=== PATIENT | female | born 1945 | race Caucasian/White ===

== ENCOUNTER 2018-06-09 05:56 | Day surgery (SDC) | payer MEDICARE ==
[2018-06-09] MEDS ORDERED: DIPRIVAN 200 MG/20 ML IV ONE (05:57)
[2018-06-09] MEDS ORDERED: Lactated Ringers 1,000 ML IV SCH (06:00)
[2018-06-09] MEDS ORDERED: Lactated Ringers 1,000 ML IV ONE (08:25)
--- NOTE | 2018-06-09 08:45 | OP ---
SURGERY DATE/TIME: 06/09/2018 0754 PREOPERATIVE DIAGNOSIS: Screening exam. POSTOPERATIVE DIAGNOSIS: Colon polyps in the sigmoid colon and hepatic flexure. PROCEDURE: Colonoscopy with polypectomy x2. SURGEON: Dr. Alba. ANESTHESIA: MAC. Anesthesia given by anesthesia department. HISTORY: The patient is a 72 year-old white female presenting for screening colonoscopy. She reports she had one over ten years ago. She reports a strong family history of colon cancer. The patient was appraised of the risks of the procedure including the risk of perforation, phlebitis, untoward reaction to medication, bleeding and missed lesions. The patient verbalized her understanding and desired to have the procedure performed. DESCRIPTION OF PROCEDURE: The patient was given the medications by the anesthesia department. She had continuous pulse oximetry, ECG monitoring, intermittent blood pressure monitoring and tidal CO2 monitoring during the examination. She was placed in the left lateral decubitus position. A digital rectal examination was performed and revealed normal anal sphincter tone and no masses. The flexible Olympus pediatric colonoscope was used to intubate the rectum. A view of the colon was developed sequentially to the cecum. Upon insertion and withdrawal there was noted pedunculated polyp measuring approximately 1.5 cm to 2 cm in size which was removed using hot polypectomy snare and retrieved for pathologic evaluation. There was also noted a small lesion which looked like it might be having adenomatous change which we used hot biopsy technique with the hot snare technique to destroy the lesion. There was noted another polyp approximately the hepatic flexure which also used hot polypectomy snare and retrieved for pathologic evaluation as well. No other mucosal lesions being encountered. The scope was removed from the patient who tolerated the procedure well and sent back to OP recovery in good condition. The prep was noted to be fair to good.
[2018-06-09 08:54] VITALS: PULSE 61; O2SAT 93
[2018-06-09 09:16] VITALS: BP 149/76
== END 2018-06-09 09:27 | disposition home or self-care (01) ==
LOC: SDC 05:56
PROVIDERS: ATTEND Family Medicine
DX: K63.5 Polyp of colon (principal); I10 Essential (primary) hypertension; Z85.850 Personal history of malignant neoplasm of thyroid; Z80.0 Family history of malignant neoplasm of digestive organs
CPT/HCPCS: 88305; 99100; J2704

== ENCOUNTER 2020-01-29 07:30 | Day surgery (SDC) | payer MEDICARE ==
[~2020-01-29 07:30] MED LIST: Lactated Ringers 1,000 ML IV ONE; Lactated Ringers 1,000 ML IV SCH
[2020-01-29] MEDS ORDERED: Lactated Ringers 1,000 ML IV ONE (08:00)
[2020-01-29] MEDS ORDERED: Decadron 4 MG INJ ONE (09:31)
[2020-01-29] MEDS ORDERED: Zofran 4 MG/2 ML VIAL ONE (09:31)
[2020-01-29] MEDS ORDERED: DIPRIVAN 200 MG/20 ML IV ONE (09:31)
[2020-01-29] MEDS ORDERED: SUBLIMAZE 100 MCG/2 ML ONE (09:31)
[2020-01-29] MEDS ORDERED: Zemuron 100 MG/10 ML ONE ×2 (09:31→10:37)
[2020-01-29] MEDS ORDERED: Versed 2 MG/2 ML Injection ONE (09:32)
[2020-01-29] MEDS ORDERED: Sensorcaine 0.25% 10 ML ONE (09:53)
[2020-01-29] MEDS ORDERED: MORPHINE SULFATE 10 MG/ML ONE (10:47)
[2020-01-29] MEDS ORDERED: BRIDION 200MG/2ML IV ONE (11:09)
[2020-01-29 12:49] VITALS: BP 141/71; PULSE 60; O2SAT 94
--- NOTE | 2020-01-30 09:02 | OP ---
SURGERY DATE/TIME: 01/29/2020 0958 PREOPERATIVE DIAGNOSES: 1) Right ovarian cyst. 2) Thickened endometrium. POSTOPERATIVE DIAGNOSES: 1) Right ovarian cyst. 2) Thickened endometrium. 3) Large fibroid uterus. PROCEDURES: 1) Dilatation and curettage. 2) Laparoscopic bilateral salpingo-oophorectomy. SURGEON: Larry Casanova D.O. INSTRUCTIONAL TECHNOLOGY COORDINATOR: kary Sepulveda tech. ANESTHESIA: General. ESTIMATED BLOOD LOSS: Minimal. COMPLICATIONS: None. INDICATIONS: The risks, benefits, indications and alternatives of the procedure were reviewed with the patient prior to the procedure. The patient understood the risk of infection, bleeding, bowel injury, bladder injury, ureteral injury, incisional hernia, pelvic infection, thromboembolic disorder associated with the surgery and desires to have this surgery as a possible need to alleviate her current medical condition. DESCRIPTION OF PROCEDURE AND FINDINGS: At this point the patient is taken to the operating room, given general sedation, placed in dorsal lithotomy position. Prepped and draped in the usual sterile fashion. A weighted speculum is then placed in the patient's vagina and the anterior lip of the cervix grasped with a single tooth tenaculum. Endocervical dilators were advanced to the endocervical canal as a means to dilate the cervix and the curette is then placed in the fundus of the uterus were curettage performed in all quadrants of the uterus retrieving a mild to moderate amount of tissue. From this point hemostasis was obtained. From this point all instruments were removed from the patient's vaginal region. Attention was then turned to the patient's abdomen where a 5 mm skin incision was made approximately 1 cm superior to the umbilicus where a 5 mm trocar and sleeve were advanced under direct visualization. Pneumoperitoneum was obtained with 4 liters of CO2 gas. From this point an additional incision was made in the left middle quadrant region where a 5 mm trocar and sleeve were advanced under direct visualization as well. Visualization of the abdomen and pelvis revealed her to have a right ovarian cyst approximately 5 x 4 cm in dimension and also large fibroid uterus with three large myomas, one on the fundal region approximately 4 x 3 cm and one anteriorly approximately 3 x 3 cm and one posteriorly approximately 3 x 3 cm. There were no other gross abnormalities located within the abdomen or pelvic region. From this point the an additional incision was made 2 cm above the symphysis pubis where a 10 mm incision was made and a 10 mm trocar and sleeve were advanced under direct visualization. From this point the LigaSure was introduced to the middle quadrant trocar site port and the right adnexa was lifted and LigaSure was placed on the infundibulopelvic ligament where it was clamped, coagulated, cut and excised in its entirety and was done so without complication. Hemostasis obtained. As well due to her strong family history of ovarian cancer, the left adnexa was removed where it was lifted up with atraumatic grasper and LigaSure was used to clamp, coagulate and cut the left infundibulopelvic region ligament and was done so without complication. Hemostasis was obtained. From this point the Endobag was introduced through the 10 mm port and the specimens were placed in the 10 mm bag port and was removed through that site and was done so without complication. After complete removal of bilateral ovaries with the tubes, a Jose-Dayton suture set was used to close the 10 mm port site and was done so without complication and 0 Vicryl suture. From this point all instruments were removed from the patient's abdominal region. The incisions were closed with 4-0 Monocryl suture. The patient was taken out of dorsal lithotomy position, was taken out of anesthesia and was subsequently taken to the recovery room in stable condition. All instruments and laps were accounted for x2.
== END 2020-01-29 13:11 | disposition home or self-care (01) ==
LOC: SDC 07:30
PROVIDERS: ATTEND Obstetrics & Gynecology
DX: D27.1 Benign neoplasm of left ovary (principal); D25.9 Leiomyoma of uterus, unspecified; N84.0 Polyp of corpus uteri; N83.8 Other noninflammatory disorders of ovary, fallopian tube and broad ligament; R93.89 Abnormal findings on diagnostic imaging of other specified body structures; I10 Essential (primary) hypertension; E78.00 Pure hypercholesterolemia, unspecified
CPT/HCPCS: 58120; 58661; 87070; 88305; 99100; J1100; J2250; J2270; J2405; J2704; J3010

== ENCOUNTER 2024-03-03 06:51 | Emergency (ER) | payer MEDICARE ==
[2024-03-03 07:26] VITALS: RESP 18; TEMP 97.8
--- NOTE | 2024-03-03 07:34 | ERPHSYRPT ---
- History of Present Illness Time Seen by Provider: 03/03/24 07:20 Source: patient Exam Limitations: no limitations Patient Subjective Stated Complaint: Fall Triage Nursing Assessment: Patient ambulated back to ED and transferred self to bed. Patient A+O X3. Patient's skin pink, warm and dry. Patient states around 0600 she wasn't fully awake and took a fall from her toilet. Patient states she landed on her left knee and left arm and left side of face. Patient complains of right shoulder pain 10/10. Patient's right cheek noted to be red and swollen. Left forearm noted to be bruised and has an abrasion, left knee bruised. Physician History: Patient is a 78-year-old white female who got up to go to the bathroom this morning early and fell. She is not sure why she fell she was not fully awake. She complains primarily of pain in the right shoulderShe is also suffered a contusion to the right cheek left knee left wrist.She denies any loss of consciousness. Occurred: this morning Reason for Fall: unknown Injuries/Pain Location: face, upper extremity (Right shoulder left wrist), lower extremity (Left knee) Loss of Consciousness: no loss of consciousness Quality: aching Severity of Pain-Max: moderate Severity of Pain-Current: moderate Modifying Factors: Improves With: movement Associated Symptoms (Fall): extremity injury Allergies/Adverse Reactions: No Known Drug Allergies Allergy (Verified 03/03/24 07:10) Home Medications: Levothyroxine Sodium [Synthroid] 175 mcg PO DAILY 04/25/18 [History] Lovastatin 40 mg PO HS 04/25/18 [History] Metoprolol Tartrate 25 mg PO DAILY 04/25/18 [History] Triamterene/Hydrochlorothiazid [Triamterene-Hctz 37.5-25 mg Tb] 37.5 mg PO DAILY 04/25/18 [History] dilTIAZem HCl [Diltiazem 24Hr ER (LA)] 360 mg PO DAILY 04/25/18 [History] Glucosam/Chond/Hyalu/Cf Borate [Move Free Joint Health Tablet] 1 each PO DAILY 01/15/20 [History] Hx Influenza Vaccination/Date Given: Yes Hx Pneumococcal Vaccination/Date Given: Yes Immunizations Up to Date: Yes Travel Risk - International Travel Have you traveled outside of the country in past 3 weeks: No - Emerging Infectious Disease Are you exhibiting symptoms associated with any current EIDs: No - Review of Systems Constitutional: No Fever, No Chills Eyes: No Symptoms Ears, Nose, & Throat: No Symptoms Respiratory: No Cough, No Dyspnea Cardiac: No Chest Pain, No Edema, No Syncope Abdominal/Gastrointestinal: No Abdominal Pain, No Nausea, No Vomiting, No Diarrhea Genitourinary Symptoms: No Dysuria Musculoskeletal: Fall, Injury, Joint Pain, No Back Pain, No Neck Pain Skin: Other (Contusions and abrasions face and extremities), No Rash Neurological: No Dizziness, No Focal Weakness, No Sensory Changes Psychological: No Symptoms Endocrine: No Symptoms All Other Systems: Reviewed and Negative - Past Medical History Pertinent Past Medical History: Yes Neurological History: Migraines ENT History: Cataracts Cardiac History: Arrhythmia, High Cholesterol, Hypertension Respiratory History: No Pertinent History Endocrine Medical History: Thyroid Cancer, Other Musculoskeletal History: Osteoarthritis GI Medical History: No Pertinent History History: No Pertinent History Psycho-Social History: No Pertinent History Female Reproductive Disorders: No Pertinent History Other Medical History: THYROID CA IN 1994, WAS REMOVED. R AGUILA 2020. - Past Surgical History Past Surgical History: Yes Neuro Surgical History: No Pertinent History Cardiac: No Pertinent History Respiratory: No Pertinent History Gastrointestinal: No Pertinent History Genitourinary: No Pertinent History Musculoskeletal: Orthopedic Surgery, Other Female Surgical History: No Pertinent History Other Surgical History: thyroidectomy 1994 due to cancer right knee surg, Metal in back from surg L3,4,5 - Social History Smoking Status: Never smoker Exposure to second hand smoke: No Drug Use: none - Nursing Vital Signs Nursing Vital Signs: Initial Vital Signs Temperature 97.8 F 03/03/24 07:11 Pulse Rate 79 03/03/24 07:11 Respiratory Rate 18 03/03/24 07:11 Blood Pressure 140/78 03/03/24 07:11 O2 Sat by Pulse Oximetry 95 03/03/24 07:11 Pain Scale Pain Intensity 10 - [place] Coma Score Best Eye Response ([place]): (4) open spontaneously Best Verbal Response ([place]): (5) oriented Best Motor Response ([place]): (6) obeys commands [place] Total: 15 - Physical Exam General Appearance: mild distress Head Injury: contusions (Contusions of the left wrist right cheek left knee and right shoulder.) Eye Exam: PERRL/EOMI ENT Exam: other (Contusion right zygomatic area) Neck Exam: supple, trachea midline, full range of motion Respiratory/Chest Exam: chest tenderness, normal breath sounds Cardiovascular Exam: normal heart sounds, regular rate/rhythm Gastrointestinal Exam: soft, normal bowel sounds, No tenderness Back Exam: normal inspection, normal range of motion Extremity Exam: contusions Neurologic Exam: alert, oriented x 3, cooperative, sensation nml, No motor deficits Skin Exam: abrasion SpO2 Interpretation: normal SpO2: 95 O2 Delivery: Room Air - Course Nursing assessment & vital signs reviewed: Yes - Radiology Exams Shoulder X-ray Interpretation: Reviewed by me Left Wrist X-ray Interpretation: Interpreted by me, Negative Facial X-ray Interpretation: Interpreted by me, Negative Left Knee X-ray Interpretation: Interpreted by me, Negative Ordered Tests: Active Orders 24 hr Category Date Time Status FACIAL BONES (MINIMUM 3 VIEWS) Stat Exams 03/03/24 07:22 Taken KNEE (3 VIEWS) Stat Exams 03/03/24 07:23 Taken SHOULDER Stat Exams 03/03/24 07:22 Completed WRIST (MIN 3 VIEWS) Stat Exams 03/03/24 07:24 Taken - Progress Progress: improved Medical Desision Making - Diagnostic Testing Radiological Interpretation: Interpreted by me, Reviewed by me - Risk of complications Minimal Risk: Minimal risk of morbidity - Departure Departure Disposition: Home Clinical Impression: Fall with injury Condition: Stable Critical Care Time: No Referrals: SAL SAL [Primary Care Provider] - Follow up/PCP as directed Instructions: Contusion (DC), Preventing falls in adults Additional Instructions: Patient was instructed to follow-up with orthopedic clinic if condition did not improve or resolve.Patient refused any pain medications or saying she will use Tylenol.
[2024-03-03 08:32] VITALS: BP 164/94; PULSE 66
--- NOTE | 2024-03-03 08:48 | XRAY ---
CLINICAL HISTORY: fall pain COMPARISON: None. TECHNIQUE: X-ray of the right shoulder, AP/external and internal rotation, grasheys and Y view FINDINGS: No fracture or dislocation seen. Soft tissues appear unremarkable. Generalized reduced bone density seen. Mild acromioclavicular and glenohumeral osteoarthritis seen as evident by reduced joint spaces. No lytic or sclerotic lesion seen. Metallic clips seen at the level of the neck status post-intervention. IMPRESSION: No acute osseous abnormality seen in the right shoulder. Osteopenia and mild to moderate acromioclavicular and glenohumeral joint osteoarthritis. (Disclaimer: "A subtle bone abnormality or fracture may not be readily apparent on x-rays, thus clinical correlation and further imaging including follow-up CT, MRI or follow up x-rays are advised as needed"). Electronically Signed by: Josefina Ballard MD. (03/03/2024 08:44:57 EDT)
[2024-03-03 09:16] VITALS: O2SAT 95
--- NOTE | 2024-03-03 20:13 | XRAY ---
Indication: Pain following fall. Comparison: None 3 view facial bones demonstrates osteopenia and mild multilevel cervical degenerative spondylosis. Patient edentulous. No other bony, articular, or soft tissue abnormalities.
--- NOTE | 2024-03-03 20:13 | XRAY ---
Indication: Pain following fall. Comparison: None 3 view left wrist demonstrates osteopenia, mild 1st metacarpal multangular scaphoid degenerative changes, and radiocarpal joint space narrowing. No other bony, articular, or soft tissue abnormalities.
--- NOTE | 2024-03-03 20:13 | XRAY ---
Indication: Pain following fall. Comparison: None 3 view left knee demonstrates osteopenia, mild/moderate tricompartmental degenerative changes greatest medial compartment, and small fabella. No other bony, articular, or soft tissue abnormalities.
== END 2024-03-03 09:27 | disposition home or self-care (01) ==
LOC: ED 06:51
DX: S60.212A Contusion of left wrist, initial encounter (principal); S00.83XA Contusion of other part of head, initial encounter; S80.02XA Contusion of left knee, initial encounter; S40.011A Contusion of right shoulder, initial encounter; W19.XXXA Unspecified fall, initial encounter; E78.5 Hyperlipidemia, unspecified; I10 Essential (primary) hypertension; Z79.899 Other long term (current) drug therapy
CPT/HCPCS: 70150; 73030; 73110; 73562; 99283; L3650

== ENCOUNTER 2024-05-21 07:07 | Emergency (ER) | payer MEDICARE ==
[2024-05-21 07:26] VITALS: TEMP 97.2
--- NOTE | 2024-05-21 08:06 | ERPHSYRPT ---
- History of Present Illness Source: patient Exam Limitations: no limitations Patient Subjective Stated Complaint: pt here for pain to right foot after a fall last night. states pain is worse bearing wt Triage Nursing Assessment: pt alert, walked in with cane, resp easy, skin w/d/p. no swelling or bruising noted, strong pedal pulse Physician History: Patient is a 78-year-old female who complains of right foot pain after falling last night at home on a hill. Pain is 5 out of 10 but rises to a 10 out of 10 when she is up and walking. she denies any other injury at this time, including head injury, neck injury, chest injury, upper and lower back injury, pelvic/hip injury, and upper extremity injury. Patient refuses any pain meds at this time. Method of Injury: fell Occurred: other ( Last night at her house) Quality: aching Severity of Pain-Max: severe Severity of Pain-Current: moderate Lower Extremities Pain: foot: right Modifying Factors: Improves With: other ( weight-bearing) Allergies/Adverse Reactions: No Known Drug Allergies Allergy (Verified 05/21/24 07:23) Home Medications: Levothyroxine Sodium [Synthroid] 175 mcg PO DAILY 04/25/18 [History] Lovastatin 40 mg PO HS 04/25/18 [History] Metoprolol Tartrate 25 mg PO DAILY 04/25/18 [History] Triamterene/Hydrochlorothiazid [Triamterene-Hctz 37.5-25 mg Tb] 37.5 mg PO DAILY 04/25/18 [History] dilTIAZem HCl [Diltiazem 24Hr ER ([place])] 360 mg PO DAILY 04/25/18 [History] Glucosam/Chond/Hyalu/Cf Borate [Move Free Joint Health Tablet] 1 each PO DAILY 01/15/20 [History] Hx Influenza Vaccination/Date Given: Yes Hx Pneumococcal Vaccination/Date Given: Yes Immunizations Up to Date: Yes Travel Risk - International Travel Have you traveled outside of the country in past 3 weeks: No - Emerging Infectious Disease Are you exhibiting symptoms associated with any current EIDs: No - Review of Systems Constitutional: No Symptoms Eyes: No Symptoms Ears, Nose, & Throat: No Symptoms Respiratory: No Symptoms Cardiac: No Symptoms Abdominal/Gastrointestinal: No Symptoms Genitourinary Symptoms: No Symptoms Skin: No Symptoms Neurological: No Symptoms Psychological: No Symptoms Endocrine: No Symptoms Hematologic/Lymphatic: No Symptoms Immunological/Allergic: No Symptoms - Past Medical History Pertinent Past Medical History: Yes Neurological History: Migraines ENT History: Cataracts Cardiac History: Arrhythmia, High Cholesterol, Hypertension Respiratory History: No Pertinent History Endocrine Medical History: Thyroid Cancer, Other Musculoskeletal History: Osteoarthritis GI Medical History: No Pertinent History History: No Pertinent History Psycho-Social History: No Pertinent History Female Reproductive Disorders: No Pertinent History Other Medical History: THYROID CA IN 1994, WAS REMOVED. R AGUILA 2020. - Past Surgical History Past Surgical History: Yes Neuro Surgical History: No Pertinent History Cardiac: No Pertinent History Respiratory: No Pertinent History Gastrointestinal: No Pertinent History Genitourinary: No Pertinent History Musculoskeletal: Orthopedic Surgery, Other Female Surgical History: No Pertinent History Other Surgical History: thyroidectomy 1994 due to cancer right knee surg, Metal in back from surg L3,4,5 - Social History Smoking Status: Never smoker Exposure to second hand smoke: No Drug Use: none - Social Determinants of Health Will the patient participate in the screening: Yes Do you worry about a steady place to live?: No Do you have any problems with any of the following?: No known problems In the past 12 months,have you had to go without utilities?: No Transportation Issues: No Has anyone in your support network made you feel unsafe?: No Have you or anyone in your house had to go without enough: No - Nursing Vital Signs Nursing Vital Signs: Initial Vital Signs Temperature 97.2 F 05/21/24 07:25 Pulse Rate 76 05/21/24 07:25 Respiratory Rate 16 05/21/24 07:25 Blood Pressure 191/73 05/21/24 07:25 O2 Sat by Pulse Oximetry 96 05/21/24 07:25 Pain Scale Pain Intensity 4 hypertensive - Physical Exam General Appearance: no apparent distress Eyes, Ears, Nose, Throat Exam: normal ENT inspection, TMs normal, pharynx normal, moist mucous membranes Neck Exam: normal inspection, non-tender, supple, full range of motion, No Brudzinski, No Kernig's, No meningismus Cardiovascular/Respiratory Exam: normal breath sounds, regular rate/rhythm, heart sounds normal Gastrointestinal/Abdominal Exam: non-tender, soft Back Exam: normal inspection ( no T or L-spine tenderness to palpation) Hips Exam: bilateral: non-tender, normal inspection, normal range of motion, no evidence of injury Legs Exam: bilateral leg: non-tender, normal inspection, normal range of motion, no evidence of injury Knees Exam: bilateral knee: non-tender, normal inspection, normal range of motion, no evidence of injury Ankle Exam: right ankle: swelling ( right ankle with mild edema and very mild tenderness palpation inferior to the lateral malleolus, good pedal pulse, distal sensation, capillary return.), left ankle: non-tender, normal inspection, normal range of motion, no evidence of injury Foot Exam: right foot: other ( Right foot with moderate tenderness palpation over the anterior lateral foot area, mild edema present, good pedal pulse, distal sensation, and capillary return), bilateral foot: non-tender, normal inspection, normal range of motion, no evidence of injury Neuro/Tendon Exam: normal sensation, normal motor functions, responds to pain, no evidence tendon injury Mental Status Exam: alert, oriented x 3, cooperative Skin Exam: normal color, warm, dry SpO2 Interpretation: normal SpO2: 96 O2 Delivery: Room Air - Course Nursing assessment & vital signs reviewed: Yes - Radiology Exams Foot X-ray Interpretation: Reviewed by me ( Right Fifth metatarsal fracture per radiologist) Ankle X-ray Interpretation: Reviewed by me ( right ankle with soft tissue swelling) Ordered Tests: Active Orders 24 hr Category Date Time Status Splint STAT Care 05/21/24 09:30 Completed ANKLE (3 VIEWS) Stat Exams 05/21/24 07:37 Completed FOOT (MINIMUM 3 VIEWS) Stat Exams 05/21/24 07:36 Completed - Progress Progress: improved Progress Note: 05/21/24 11:40 Nursing note and vital signs reviewed. No food or housing insecurity noted. Boot on right lower extremity per nursing, neurovascular intact post application. All x-ray results thoroughly reviewed and shared with patient. Patient refused pain meds throughout her entire ER visit. Patient also refused crutches and will use her walker at home. She just wants to take Tylenol for pain at home was advised to take that every 6 hours as needed. Patient has seen Zarina Lynn [facility] in the past and wants to follow-up with her. Patient advised that she is not to bear weight on her right lower extremity and to follow-up with the orthopedic clinic in the morning. Blood pressure initially elevated but normalized without treatment. 05/21/24 11:42 Counseled pt/family regarding: diagnosis, need for follow-up, rad results Medical Desision Making - Independent Historian Additional History obtained from: Spouse - Diagnostic Testing Diagnostic test were ordered, analyzed, and reviewed by me: Yes Radiological Interpretation: Reviewed by me - Risk of complications Low Risk: Low risk of morbidity from additional dx testing or treatment - Departure Departure Disposition: Home Clinical Impression: Nondisplaced fracture of fifth left metatarsal bone Condition: Stable Critical Care Time: No Referrals: SAL SAL [Primary Care Provider] - Follow up/PCP as directed ZARINA LYNN NP [NON-STAFF PHY W/O PRIVILEGES] - Follow up/PCP as directed Instructions: Foot Fracture (DC) Additional Instructions: No weight bearing, use your walker Follow-up with the orthopedic clinic 8 AM to 10 AM in the morning Continue with Tylenol as needed for pain Return to ER as needed Forms: Ortho Referral
--- NOTE | 2024-05-21 09:27 | XRAY ---
Indication: Pain following fall. Comparison: None 3 view right ankle demonstrates osteopenia and moderate soft tissue swelling. No other bony, articular, or soft tissue abnormalities.
--- NOTE | 2024-05-21 09:29 | XRAY ---
Indication: Pain following fall. Comparison: None 3 nonweightbearing views right foot demonstrates osteopenia. Proximal shaft 5th metatarsal demonstrates incomplete transverse hairline fracture with adjacent soft tissue swelling. No other bony, articular, or soft tissue abnormalities.
[2024-05-21 09:48] VITALS: BP 150/74; PULSE 95; RESP 16
[2024-05-21 11:10] VITALS: O2SAT 96
== END 2024-05-21 09:53 | disposition home or self-care (01) ==
LOC: ED 07:07
DX: S92.355A Nondisplaced fracture of fifth metatarsal bone, left foot, initial encounter for closed fracture (principal); W17.81XA Fall down embankment (hill), initial encounter; Y92.007 Garden or yard of unspecified non-institutional (private) residence as the place of occurrence of the external cause; E78.5 Hyperlipidemia, unspecified; I10 Essential (primary) hypertension; Z79.899 Other long term (current) drug therapy
CPT/HCPCS: 73610; 73630; 99283; L4386

== ENCOUNTER 2024-06-13 13:32 | Day surgery (SDC) | payer MEDICARE ==
[2024-06-13] MEDS ORDERED: Sodium Chloride 0.9(Preservative Free) 10 ML IJ ONE (13:33)
[2024-06-13] MEDS ORDERED: LIDOCAINE HCL 1% 50 MG/5 ML VL PF IJ ONE (13:33)
[2024-06-13] MEDS ORDERED: Decadron 4 MG INJ IV ONE (13:33)
[2024-06-13] MEDS ORDERED: DIPRIVAN 200 MG/20 ML IV ONE (15:05)
[2024-06-13] MEDS ORDERED: Lactated Ringers 1,000 ML IV ONE (15:13)
--- NOTE | 2024-06-13 16:36 | XRAY ---
Indication: Left L4-S1 transforaminal ABEL. Intraoperative fluoroscopy provided for 31 seconds. 4 digital spot images submitted for interpretation demonstrates posterior needle tips projecting over expected left L4 and L5 nerve roots. Small amount of contrast injected for needle tip placement. Correlate with intraoperative findings/report. Incidental spinous process fusion hardware posterior to L4.
--- NOTE | 2024-06-13 16:38 | XRAY ---
Indication: Left piriformis injection. Intraoperative fluoroscopy provided for 18 seconds. Single digital spot image submitted for interpretation demonstrates posterior needle tip projecting over expected left piriformis. Small amount of contrast injected for needle tip placement. Correlate with intraoperative findings/report.
--- NOTE | 2024-06-14 09:49 | XRAY ---
18 seconds of fluoroscopy was used in surgery for a left piriformis injection.
--- NOTE | 2024-06-14 09:50 | XRAY ---
31 seconds of fluoroscopy was used in surgery for a left L4-S1 transforaminal ABEL.
== END 2024-06-13 15:37 | disposition home or self-care (01) ==
LOC: SDC-PAIN 13:32
PROVIDERS: ATTEND Psychiatry & Neurology Pain Medicine
DX: M54.16 Radiculopathy, lumbar region (principal); M79.18 Myalgia, other site
CPT/HCPCS: 20552; 64483; 64484; 72100; 72170; 77002; 77003; 99100; J1100; J2001; J2704; Q9966

== ENCOUNTER 2024-11-26 02:24 | Emergency (ER) | payer MEDICARE ==
[2024-11-26 02:42] VITALS: TEMP 97.7
--- NOTE | 2024-11-26 02:50 | ERPHSYRPT ---
<TIGRE CORMIER - Last Filed: 11/26/24 07:32> - History of Present Illness Time Seen by Provider: 11/26/24 02:31 Historian: patient Exam Limitations: no limitations Patient Subjective Stated Complaint: c/o chest pain Triage Nursing Assessment: patient brought into ED by ambulance with c/o chest pain. patient stated that she woke up around 0036 with chest pressure. patient stated that the pain was 10/10 and wasn't going away so she called 911. S1 and S2 heard, pulses normal, skin w/n/d, hypertensive, brought in by stretcher, aspirin and nitro given prior to arrival, no edema present in lower extremeties, patient doesn't appear to be in any distress at this time. Physician History: Pt states about 2 hours ago she awoke with chest tightness up to 10/10 in severity and nausea; denies shortness of air, abdominal pain, vomiting, fever, headache. Aspirin Treatment Today: 81 mg x 4, provided by ED Allergies/Adverse Reactions: No Known Drug Allergies Allergy (Verified 11/26/24 02:42) Home Medications: Levothyroxine Sodium [Synthroid] 175 mcg PO DAILY 04/25/18 [History] Lovastatin 40 mg PO HS 04/25/18 [History] Metoprolol Tartrate 25 mg PO DAILY 04/25/18 [History] Triamterene/Hydrochlorothiazid [Triamterene-Hctz 37.5-25 mg Tb] 37.5 mg PO DAILY 04/25/18 [History] dilTIAZem HCL [Diltiazem 24Hr ER ([place])] 360 mg PO DAILY 04/25/18 [History] Glucosam/Chond/Hyalu/Cf Borate [Move Free Joint Health Tablet] 1 each PO DAILY 01/15/20 [History] Potassium Chloride [Klor-Con M20] 20 meq PO DAILY 11/26/24 [History] Hx Tetanus, Diphtheria Vaccination/Date Given: Yes Hx Influenza Vaccination/Date Given: No Hx Pneumococcal Vaccination/Date Given: Yes Travel Risk - International Travel Have you traveled outside of the country in past 3 weeks: No - Emerging Infectious Disease Are you exhibiting symptoms associated with any current EIDs: No - Review of Systems Constitutional: No Fever Respiratory: No Dyspnea Cardiac: Other (chest tightness) Abdominal/Gastrointestinal: Nausea, No Abdominal Pain, No Vomiting Neurological: Headache - Past Medical History Pertinent Past Medical History: Yes Neurological History: Migraines ENT History: Cataracts Cardiac History: Arrhythmia, High Cholesterol, Hypertension Respiratory History: No Pertinent History Endocrine Medical History: Thyroid Cancer, Other Musculoskeletal History: Osteoarthritis GI Medical History: No Pertinent History History: No Pertinent History Psycho-Social History: No Pertinent History Female Reproductive Disorders: No Pertinent History Other Medical History: THYROID CA IN 1994, WAS REMOVED. R AGUILA 2020. - Past Surgical History Past Surgical History: Yes Neuro Surgical History: No Pertinent History Cardiac: No Pertinent History Respiratory: No Pertinent History Gastrointestinal: No Pertinent History Genitourinary: No Pertinent History Musculoskeletal: Orthopedic Surgery, Other Female Surgical History: No Pertinent History Other Surgical History: thyroidectomy 1994 due to cancer right knee surg, Metal in back from surg L3,4,5 - Social History Smoking Status: Never smoker Exposure to second hand smoke: No Drug Use: none - Social Determinants of Health Will the patient participate in the screening: Yes Do you worry about a steady place to live?: No Do you have any problems with any of the following?: No known problems In the past 12 months,have you had to go without utilities?: No Transportation Issues: No Has anyone in your support network made you feel unsafe?: No Have you or anyone in your house had to go without enough: No - Physical Exam General Appearance: alert, anxiety Eye Exam: eyes nml inspection Ears, Nose, Throat Exam: TMs normal, pharynx normal Neck Exam: normal inspection Respiratory Exam: normal breath sounds, airway intact Cardiovascular Exam: murmur (1/6 systolic murmur) Gastrointestinal/Abdomen Exam: normal bowel sounds Extremity Exam: No pedal edema Neurologic Exam: alert, cooperative Skin Exam: warm, dry, No cyanosis SpO2 Interpretation: normal SpO2: 96 O2 Delivery: Room Air - Course Nursing assessment & vital signs reviewed: Yes EKG Interpreted by Me: RATE (79), Sinus Rhythm, Left Dale Deviation, Other (QTc = 453) - Radiology Exams Chest X-ray Interpretation: Teleradiologist Report (See report.) - CT Exams Chest CT Interpretation: Tele-radiologist Report (No large filling defect in the pulmonary trunk or right and left pulmonary arteries. No acute pulmonary abnormality was depicted on CT. Cholelithiasis with suggestion of wall thickening. Ultrasound correlation is recommended to excllude acute cholecystitis. See rest of report.) - Departure Clinical Impression: Chest tightness, Cholelithiasis with cholecystitis Condition: Stable Critical Care Time: No Referrals: SAL SAL [Primary Care Provider] - Follow up/PCP as directed Additional Instructions: Drink plenty of fluids. Avoid fatty greasy spicy foods. Call your primary care provider today, 11/26/2024, to make arrangements for follow-up visit and for referral to a general surgeon. <RYAN BARAJAS. - Last Filed: 11/26/24 08:54> - Nursing Vital Signs Nursing Vital Signs: Initial Vital Signs Temperature 97.7 F 11/26/24 02:25 Pulse Rate 82 11/26/24 02:25 Respiratory Rate 20 11/26/24 02:25 Blood Pressure 168/86 11/26/24 02:25 O2 Sat by Pulse Oximetry 96 11/26/24 02:25 Pain Scale Pain Intensity 6 Ordered Tests: Active Orders 24 hr Category Date Time Status EKG-ER Only STAT Care 11/26/24 02:47 Active IV Insertion STAT Care 11/26/24 02:47 Active IV Insertion-2nd Peripheral STAT Care 11/26/24 04:25 Active CHEST 2 VIEWS (PA AND LAT) Stat Exams 11/26/24 02:48 Completed CHEST WITH CONTRAST [CT] Stat Exams 11/26/24 04:29 Completed GALLBLADDER [US] Stat Exams 11/26/24 06:53 Completed AMYLASE Stat Lab 11/26/24 03:10 Completed CBC W DIFF Stat Lab 11/26/24 03:10 Completed CMP Stat Lab 11/26/24 03:10 Completed D-DIMER QUANTITATIVE Stat Lab 11/26/24 03:10 Completed LIPASE Stat Lab 11/26/24 03:10 Completed MAGNESIUM Stat Lab 11/26/24 03:10 Completed TROPONIN Q4H Lab 11/26/24 03:10 Completed TROPONIN Q4H Lab 11/26/24 08:00 Completed TROPONIN Q4H Lab 11/26/24 11:00 Ordered UA W/RFX UR CULTURE Stat Lab 11/26/24 03:34 Completed Medication Summary Discontinued Medications Generic Name Dose Route Start Last Admin Trade Name Freq PRN Reason Stop Dose Admin Aspirin 324 mg 11/26/24 07:31 11/26/24 07:43 Aspirin 81 Mg Tab.Chew PO 11/26/24 07:32 324 mg STAT ONE Administration Aspirin Confirm 11/26/24 07:42 Aspirin 81 Mg Tab.Chew Administered 11/26/24 07:43 Dose 324 mg .ROUTE .STK-MED ONE Nitroglycerin 0.4 mg 11/26/24 02:49 11/26/24 02:55 Nitroglycerin 0.4 Mg (Ed) 0.4 Mg Tab.Subl SL 11/26/24 02:50 0.4 mg STAT ONE Administration Nitroglycerin Confirm 11/26/24 02:54 Nitroglycerin 0.4 Mg (Ed) 0.4 Mg Tab.Subl Administered 11/26/24 02:55 Dose 0.4 mg SL .STK-MED ONE Lab/Rad Data: Laboratory Result Diagrams 11/26/24 03:10 11/26/24 03:10 Laboratory Results 11/26/24 11/26/24 11/26/24 Range/Units 08:00 03:34 03:10 WBC (3.98-10.04) x10^3/uL RBC (3.93-5.22) x10^6/uL Hgb (11.2-15.7) g/dL Hct (34.1-44.9) % MCV (79.4-94.8) fL MCH (25.6-32.2) pg MCHC (32.2-35.5) g/dL RDW (11.7-14.4) % Plt Count (182-369) x10^3/uL MPV (9.4-12.3) fL Gran % (34.0-71.1) % Immature Gran % (Auto) (0.001-0.429) % Nucleat RBC Rel Count (0.00-0.2) % Eos # (Auto) (0.04-0.36) x10^3/uL Immature Gran # (Auto) (0.001-0.031) x10^3u/L Absolute Lymphs (auto) (1.18-3.74) x10^3/uL Absolute Monos (auto) (0.24-0.86) x10^3/uL Absolute Nucleated RBC (0.00-0.012) x10^3u/L Lymphocytes % (19.3-51.7) % Monocytes % (4.7-12.5) % Eosinophils % (0.7-5.8) % Basophils % (0.1-1.2) % Absolute Granulocytes (1.56-6.13) x10^3/uL Basophils # (0.01-0.08) x10^3/uL D-Dimer (0.0-0.50) mg/L Sodium (135-145) mmol/L Potassium (3.5-5.1) mmol/L Chloride (98-107) mmol/L Carbon Dioxide (22-30) mmol/L Anion Gap (5-15) MEQ/L BUN (7-17) mg/dL Creatinine (0.52-1.04) mg/dL Estimated GFR ML/MIN Glucose (74-106) mg/dL Calcium (8.4-10.2) mg/dL Magnesium (1.6-2.3) mg/dL Total Bilirubin (0.2-1.3) mg/dL AST (14-36) U/L ALT (0-35) U/L Alkaline Phosphatase (38-126) U/L Troponin I < 0.012 (0.000-0.033) ng/mL Serum Total Protein (6.3-8.2) g/dL Albumin (3.5-5.0) g/dL Amylase (30-110) U/L Lipase (23-300) U/L Urine Color Yellow (Yellow) Urine Appearance Clear (Clear) Urine pH 6.5 (4.6-8.0) Ur Specific [place] 1.010 (1.005-1.030) Urine Protein Negative (Negative) Urine Glucose (UA) Negative (Negative) mg/dL Urine Ketones Negative (Negative) Urine Blood Negative (Negative) Urine Nitrite Negative (Negative) Urine Bilirubin Negative (Negative) Urine Urobilinogen 1.0 A (0.2) mg/dL Ur Leukocyte Esterase Negative (Negative) U Hyaline Cast (Auto) NONE SEEN (0-2) /LPF Urine Microscopic RBC 0-2 (0-5) /HPF Urine Microscopic WBC 0-2 (0-5) /HPF Ur Epithelial Cells None Seen (None Seen) /HPF Urine Bacteria None Seen (None Seen) /HPF Urine Culture Reflexed NO (NO) Influenza Type A Ag NEGATIVE (NEGATIVE) Influenza Type B Ag NEGATIVE (NEGATIVE) RSV (PCR) NEGATIVE (NEGATIVE) SARS-CoV-2 (PCR) NEGATIVE (NEGATIVE) Group A Strep Antibody (NEGATIVE) 11/26/24 11/26/24 11/26/24 Range/Units 03:10 03:10 03:10 WBC (3.98-10.04) x10^3/uL RBC (3.93-5.22) x10^6/uL Hgb (11.2-15.7) g/dL Hct (34.1-44.9) % MCV (79.4-94.8) fL MCH (25.6-32.2) pg MCHC (32.2-35.5) g/dL RDW (11.7-14.4) % Plt Count (182-369) x10^3/uL MPV (9.4-12.3) fL Gran % (34.0-71.1) % Immature Gran % (Auto) (0.001-0.429) % Nucleat RBC Rel Count (0.00-0.2) % Eos # (Auto) (0.04-0.36) x10^3/uL Immature Gran # (Auto) (0.001-0.031) x10^3u/L Absolute Lymphs (auto) (1.18-3.74) x10^3/uL Absolute Monos (auto) (0.24-0.86) x10^3/uL Absolute Nucleated RBC (0.00-0.012) x10^3u/L Lymphocytes % (19.3-51.7) % Monocytes % (4.7-12.5) % Eosinophils % (0.7-5.8) % Basophils % (0.1-1.2) % Absolute Granulocytes (1.56-6.13) x10^3/uL Basophils # (0.01-0.08) x10^3/uL D-Dimer 0.68 H* (0.0-0.50) mg/L Sodium (135-145) mmol/L Potassium (3.5-5.1) mmol/L Chloride (98-107) mmol/L Carbon Dioxide (22-30) mmol/L Anion Gap (5-15) MEQ/L BUN (7-17) mg/dL Creatinine (0.52-1.04) mg/dL Estimated GFR ML/MIN Glucose (74-106) mg/dL Calcium (8.4-10.2) mg/dL Magnesium (1.6-2.3) mg/dL Total Bilirubin (0.2-1.3) mg/dL AST (14-36) U/L ALT (0-35) U/L Alkaline Phosphatase (38-126) U/L Troponin I < 0.012 (0.000-0.033) ng/mL Serum Total Protein (6.3-8.2) g/dL Albumin (3.5-5.0) g/dL Amylase (30-110) U/L Lipase (23-300) U/L Urine Color (Yellow) Urine Appearance (Clear) Urine pH (4.6-8.0) Ur Specific [place] (1.005-1.030) Urine Protein (Negative) Urine Glucose (UA) (Negative) mg/dL Urine Ketones (Negative) Urine Blood (Negative) Urine Nitrite (Negative) Urine Bilirubin (Negative) Urine Urobilinogen (0.2) mg/dL Ur Leukocyte Esterase (Negative) U Hyaline Cast (Auto) (0-2) /LPF Urine Microscopic RBC (0-5) /HPF Urine Microscopic WBC (0-5) /HPF Ur Epithelial Cells (None Seen) /HPF Urine Bacteria (None Seen) /HPF Urine Culture Reflexed (NO) Influenza Type A Ag (NEGATIVE) Influenza Type B Ag (NEGATIVE) RSV (PCR) (NEGATIVE) SARS-CoV-2 (PCR) (NEGATIVE) Group A Strep Antibody NOT DETECTED (NEGATIVE) 11/26/24 11/26/24 Range/Units 03:10 03:10 WBC 5.1 (3.98-10.04) x10^3/uL RBC 3.81 L (3.93-5.22) x10^6/uL Hgb 12.0 (11.2-15.7) g/dL Hct 36.7 (34.1-44.9) % MCV 96.3 H (79.4-94.8) fL MCH 31.5 (25.6-32.2) pg MCHC 32.7 (32.2-35.5) g/dL RDW 12.2 (11.7-14.4) % Plt Count 197 (182-369) x10^3/uL MPV 10.3 (9.4-12.3) fL Gran % 53.5 (34.0-71.1) % Immature Gran % (Auto) 0.2 (0.001-0.429) % Nucleat RBC Rel Count 0.0 (0.00-0.2) % Eos # (Auto) 0.16 (0.04-0.36) x10^3/uL Immature Gran # (Auto) 0.01 (0.001-0.031) x10^3u/L Absolute Lymphs (auto) 1.84 (1.18-3.74) x10^3/uL Absolute Monos (auto) 0.35 (0.24-0.86) x10^3/uL Absolute Nucleated RBC 0.00 (0.00-0.012) x10^3u/L Lymphocytes % 36.0 (19.3-51.7) % Monocytes % 6.8 (4.7-12.5) % Eosinophils % 3.1 (0.7-5.8) % Basophils % 0.4 (0.1-1.2) % Absolute Granulocytes 2.73 (1.56-6.13) x10^3/uL Basophils # 0.02 (0.01-0.08) x10^3/uL D-Dimer (0.0-0.50) mg/L Sodium 141 (135-145) mmol/L Potassium 3.6 (3.5-5.1) mmol/L Chloride 110 H (98-107) mmol/L Carbon Dioxide 24 (22-30) mmol/L Anion Gap 10.0 (5-15) MEQ/L BUN 14 (7-17) mg/dL Creatinine 0.73 (0.52-1.04) mg/dL Estimated GFR 83.6 ML/MIN Glucose 126 H (74-106) mg/dL Calcium 10.8 H (8.4-10.2) mg/dL Magnesium 2.1 (1.6-2.3) mg/dL Total Bilirubin 0.90 (0.2-1.3) mg/dL AST 25 (14-36) U/L ALT 20 (0-35) U/L Alkaline Phosphatase 83 (38-126) U/L Troponin I (0.000-0.033) ng/mL Serum Total Protein 7.2 (6.3-8.2) g/dL Albumin 4.2 (3.5-5.0) g/dL Amylase 62 (30-110) U/L Lipase 300 (23-300) U/L Urine Color (Yellow) Urine Appearance (Clear) Urine pH (4.6-8.0) Ur Specific [place] (1.005-1.030) Urine Protein (Negative) Urine Glucose (UA) (Negative) mg/dL Urine Ketones (Negative) Urine Blood (Negative) Urine Nitrite (Negative) Urine Bilirubin (Negative) Urine Urobilinogen (0.2) mg/dL Ur Leukocyte Esterase (Negative) U Hyaline Cast (Auto) (0-2) /LPF Urine Microscopic RBC (0-5) /HPF Urine Microscopic WBC (0-5) /HPF Ur Epithelial Cells (None Seen) /HPF Urine Bacteria (None Seen) /HPF Urine Culture Reflexed (NO) Influenza Type A Ag (NEGATIVE) Influenza Type B Ag (NEGATIVE) RSV (PCR) (NEGATIVE) SARS-CoV-2 (PCR) (NEGATIVE) Group A Strep Antibody (NEGATIVE) - Progress Progress: improved, re-examined Air Movement: good Progress Note: 11/26/24 08:52 Patient care transferred to ri at 7 AM. I reviewed the patient's laboratory data results. Patient is afebrile, her white count is normal, there is no left shift, her liver function test and pancreas enzymes are normal. The CT scan of the chest with contrast was interpreted by the radiologist. There is no evidence of pulmonary embolus or pneumonia. Gallbladder ultrasound was interpreted by the radiologist and I reviewed the impression. The impression states cholelithiasis with sonographic features favoring acute cholecystitis. Counseled pt/family regarding: lab results, diagnosis, need for follow-up, rad results Medical Desision Making - Diagnostic Testing Diagnostic test were ordered, analyzed, and reviewed by me: Yes Radiological Interpretation: Reviewed by me, Teleradiologist Report - Risk of complications Low Risk: Low risk of morbidity from additional dx testing or treatment
[2024-11-26] MEDS ORDERED: Nitrostat 0.4 MG (ED) SL ONE (02:54)
[2024-11-26] MEDS: Nitrostat 0.4 MG (ED) SL ONE (02:55)
[2024-11-26 03:27] LABS: Absolute Neutrophil Ct (ANC) 2.73 x10^3/uL (1.56-6.13); BASOPHIL % 0.4 % (0.1-1.2); Basophil (Absolute #) 0.02 x10^3/uL (0.01-0.08); Eosinophil % 3.1 % (0.7-5.8); Eosinophil (Absolute #) 0.16 x10^3/uL (0.04-0.36); Hematocrit 36.7 % (34.1-44.9); IMMATURE GRAN # 0.01 x10^3u/L (0.001-0.031); IMMATURE GRAN % 0.2 % (0.001-0.429); Lymphocyte (Absolute #) 1.84 x10^3/uL (1.18-3.74); Mean Cell Volume 96.3 fL (79.4-94.8); Mean Corpuscular Hemoglobin 31.5 pg (25.6-32.2); Mean Corpuscular Hgb Concent. 32.7 g/dL (32.2-35.5); Mean Platelet Volume 10.3 fL (9.4-12.3); Monocyte (Absolute #) 0.35 x10^3/uL (0.24-0.86); Monocytes % 6.8 % (4.7-12.5); Neutrophil % 53.5 % (34.0-71.1); Platelet Count 197 x10^3/uL (182-369); Red Blood Count 3.81 x10^6/uL (3.93-5.22); Red Cell Distribution Width 12.2 % (11.7-14.4); White Blood Count 5.1 x10^3/uL (3.98-10.04)
[2024-11-26 03:44] LABS: ALBUMIN 4.2 g/dL (3.5-5.0); BILIRUBIN,TOTAL 0.9 mg/dL (0.2-1.3); Calcium 10.8 mg/dL (8.4-10.2); Creatinine 1 0.73 mg/dL (0.52-1.04); EST GLOMERULAR FILTRATION RATE 83.6 ML/MIN; MAGNESIUM 2.1 mg/dL (1.6-2.3); Potassium 3.6 mmol/L (3.5-5.1); Total Protein 7.2 g/dL (6.3-8.2)
[2024-11-26 03:46] LABS: Appearance Clear (Clear); Bacteria None Seen /HPF (None Seen); Bilirubin Negative (Negative); Blood Negative (Negative); Epithelial Cells None Seen /HPF (None Seen); Glucose, Urine Negative (Negative); Hyaline Casts NONE SEEN /LPF (0-2); Ketones Negative (Negative); Leukocyte Esterase Negative (Negative); Nitrite Negative (Negative); Ph 6.5 (4.6-8.0); Protein,Urine Dip Negative (Negative); RBC 0-2 /HPF (0-5); WBC 0-2 /HPF (0-5)
[2024-11-26 04:06] LABS: INFLUENZA A NEGATIVE (NEGATIVE); INFLUENZA B NEGATIVE (NEGATIVE); RESPIRATORY SYNCTIAL VIRUS NEGATIVE (NEGATIVE); SARS-CoV-2 Xpert Express NEGATIVE (NEGATIVE)
--- NOTE | 2024-11-26 04:48 | XRAY ---
CLINICAL HISTORY: chest tightness COMPARISON: 08/19/2011 CR. TECHNIQUE: X-ray images of the chest were obtained in posteroanterior (PA) and lateral projections. FINDINGS: Pulmonary Parenchyma: Prominent hilar shadows and bronchovascular markings at both lung salomon denote congestive changes. No evidence of consolidation, collapse, or focal opacities. No pulmonary nodules were identified. No evidence of pleural effusion or pleural thickening. Heart and Mediastinum: Prominent cardiac shadow denoting cardiomegaly. Prominent aortic knuckle. No mediastinal widening or masses. No mediastinal lymphadenopathy. Bony Thorax: Spondylodegenerative changes. Bony thorax appears intact without fractures or deformities. Soft Tissues: Radioopaque clips are seen at the region of the upper trachea and lower neck in PA view likely post-operative sequel. Dilated lower part of esophagus with air/fluid level. IMPRESSION: 1. Prominent hilar shadows and bronchovascular markings at both lung salomon denote congestive changes. Progressive. 2. Prominent cardiac shadow denoting cardiomegaly. Stable. 3. Dilated lower part of esophagus with air/fluid level for further workup. Newly seen. Electronically Signed by: Josefina Ballard MD. (11/26/2024 04:44:08 EST)
--- NOTE | 2024-11-26 06:41 | XRAY ---
CLINICAL HISTORY: elevated d-dimer COMPARISON: with the prior study dated 11/26/2024. TECHNIQUE: Contiguous 3.[address] angiographic images of the chest were acquired with the administration of intravenous contrast. Coronal and sagittal reconstructions were obtained. One of these 3D techniques was utilized: Maximum Intensity Pixel (MIP), 3D Reconstructed Images, Volume Rendered Images, Surface Shaded Rendering. One of the following dose reduction techniques were utilized for this exam: Automated exposure control, adjustment of the mA and/or kV according to patient size, and use of iterative reconstruction. CTDI: 68.3 mGy, DLP: 1284.09mGy-cm FINDINGS: Aorta: Diffuse aortic atherosclerotic changes were noted. The thoracic aorta is normal in caliber. No evidence of an aneurysm, or dissection. The aortic arch and descending thoracic aorta are unremarkable. Pulmonary Arteries: No large filling defect in the pulmonary trunk, or right and left pulmonary arteries. The possibility of segmental and subsegmental embolism cannot be entirely excluded due to suboptimal opacification. Superior Vena Cava (SVC) and Inferior Vena Cava (IVC): Normal opacification and caliber. No evidence of thrombus or obstruction. Coronary Arteries: Coronary arteries are well-opacified. No significant stenosis or atherosclerotic changes. Mediastinum: Subcentimeter right hilar lymph nodes. Small hiatal hernia. Heart: Mildly enlarged cardiac size noted. Normal size and morphology of the heart. No pericardial effusion. Lungs: Lungs are clear with no evidence of consolidation, nodules, or masses. Mild posterior gravitational changes were noted. No pleural effusion or thickening. Bones: No fractures or lytic/sclerotic lesions of the visualized bony structures. Normal alignment and bone density. Moderate spondylosis of the thoracic spine was noted. Soft Tissues: Normal appearance of the visualized soft tissues. No abnormal masses or fluid collections. Upper abdomen: Cholelithiasis with suggestion of wall thickening. Ultrasound correlation is recommended to exclude acute cholecystitis. IMPRESSION: 1. No large filling defect in the pulmonary trunk, or right and left pulmonary arteries. 2. The possibility of segmental and subsegmental embolism cannot be entirely excluded due to suboptimal opacification. 3. Cardiomegaly is seen, as noted on CT. 4. Moderate spondylosis of the thoracic spine was noted. 5. No acute pulmonary abnormality was depicted on CT. 6. Small hiatal hernia. 7. Cholelithiasis with suggestion of wall thickening. Ultrasound correlation is recommended to exclude acute cholecystitis. Electronically Signed by: Josefina Ballard MD. (11/26/2024 06:36:50 EST)
[2024-11-26] MEDS ORDERED: BABY ASPIRIN 81 MG CHEW ONE (07:42)
[2024-11-26] MEDS: BABY ASPIRIN 81 MG CHEW PO ONE (07:43)
--- NOTE | 2024-11-26 08:37 | XRAY ---
Indication: Gallbladder wall thickening on CT chest. Two-dimensional gallbladder sonogram performed. Comparison: None Visualized gallbladder normally distended with multiple tiny gallstones in the dependent portion. Abnormal gallbladder wall thickening up to 6.3 mm with tiny pericholecystic fluid concerning for acute cholecystitis. Common bile duct measures 4.2 mm. No intrahepatic biliary distention. Remaining visualized liver, pancreas, and right kidney are sonographically normal. Right kidney measures 12.1 x 5.8 x 4.8 cm. Impression: Cholelithiasis with sonographic features favoring acute cholecystitis.
[2024-11-26 09:00] VITALS: PULSE 65; RESP 18; O2SAT 96
[2024-11-26 09:10] VITALS: BP 169/86
== END 2024-11-26 09:09 | disposition home or self-care (01) ==
LOC: ED 02:24
DX: K80.10 Calculus of gallbladder with chronic cholecystitis without obstruction (principal); R07.9 Chest pain, unspecified; R11.0 Nausea; E78.5 Hyperlipidemia, unspecified; I10 Essential (primary) hypertension; Z79.899 Other long term (current) drug therapy
CPT/HCPCS: 0241U; 36415; 71046; 71260; 76705; 80053; 81001; 82150; 83690; 83735; 84484; 85025; 85379; 87651; 93005; 99285; A9270-GY

== ENCOUNTER 2025-10-04 16:57 | Emergency (ER) | payer MEDICARE ==
[2025-10-04 17:12] VITALS: TEMP 97.6
[2025-10-04 18:19] VITALS: BP 138/71; PULSE 73; RESP 18; O2SAT 96
--- NOTE | 2025-10-04 19:21 | ERPHSYRPT ---
- History of Present Illness Time Seen by Provider: 10/04/25 19:20 Source: patient Patient Subjective Stated Complaint: PT STATES SHE FELL AND HURT HER RIGHT HIP Triage Nursing Assessment: PT ARRIVES TO THE ED VIA PRIVATE VEHICLE. PT IS WHEELED INTO THE ED AND IS ABLE TO TRANSFER HERSELF INTO THE ER COT. PT IS ALERT AND ORIENTED X4, NO RESPIRATORY DISTRESS NOTED, PULSES EQUAL BILATERALLY. PT STATES SHE WAS SHOPPING TODAY WHEN SHE TRIPPED ON A CURB AND LANDED ON HER RIGHT HIP. PT DID HAVE A HIP REPLACEMENT IN 2020. PT DENIES HITTING HER HEAD OR LOSS OF CONCIOUSNESS. PT DOES HAVE SWELLING TO THE RIGHT HIP AND IS VERY TENDER TO PALPATION. THERE IS NO BRUSING PRESENT AND NO OPEN WOUNDS. PT DOES HAVE A STRONG REGULAR PULSE DISTAL TO THE INJURY ON THE AFFECTED EXTREMITY. Physician History: Take Tylenol ibuprofen for pain. Follow-up with Ortho clinic on Tuesday patient reports she caught her heel on a curb and fell onto her right buttocks today. She has been able to walk on the hip but noted some bruising and wanted to get it checked out.denies any other injury. denies limited rom. ambulatory Timing/Duration: today Allergies/Adverse Reactions: No Known Drug Allergies Allergy (Verified 10/04/25 17:16) Home Medications: Levothyroxine Sodium [Synthroid] 175 mcg PO DAILY 04/25/18 [History] Lovastatin 40 mg PO HS 04/25/18 [History] Potassium Chloride [Klor-Con M20] 20 meq PO DAILY 11/26/24 [History] Aspirin [Kishan Chewable] 81 mg PO DAILY 10/04/25 [History] Cholecalciferol (Vitamin D3) [Vitamin D3] 125 mcg PO DAILY 10/04/25 [History] Losartan Potassium 50 mg PO BID 10/04/25 [History] Meclizine HCl 25 mg PO QID 10/04/25 [History] Nitroglycerin [Nitrostat] 0.4 mg SL Q5MIN PRN MR X 3 PRN 10/04/25 [History] Hx Tetanus, Diphtheria Vaccination/Date Given: Yes Hx Influenza Vaccination/Date Given: Yes Hx Pneumococcal Vaccination/Date Given: No Immunizations Up to Date: Yes Travel Risk - International Travel Have you traveled outside of the country in past 3 weeks: No - Emerging Infectious Disease Are you exhibiting symptoms associated with any current EIDs: No - Review of Systems Constitutional: No Fever, No Chills Eyes: No Symptoms Ears, Nose, & Throat: No Symptoms Respiratory: No Cough, No Dyspnea Cardiac: No Chest Pain, No Edema, No Syncope Abdominal/Gastrointestinal: No Abdominal Pain, No Nausea, No Vomiting, No Diarrhea Genitourinary Symptoms: No Dysuria Musculoskeletal: Fall (right hip pain only), Injury, No Back Pain, No Neck Pain Skin: No Rash Neurological: No Dizziness, No Focal Weakness, No Sensory Changes Psychological: No Symptoms Endocrine: No Symptoms All Other Systems: Reviewed and Negative - Past Medical History Pertinent Past Medical History: Yes Neurological History: Migraines ENT History: Cataracts Cardiac History: Arrhythmia, High Cholesterol, Hypertension Respiratory History: No Pertinent History Endocrine Medical History: Thyroid Cancer, Other Musculoskeletal History: Osteoarthritis GI Medical History: No Pertinent History History: No Pertinent History Psycho-Social History: No Pertinent History Female Reproductive Disorders: No Pertinent History Other Medical History: THYROID CA IN 1994, WAS REMOVED. R AGUILA 2020. - Past Surgical History Past Surgical History: Yes Neuro Surgical History: No Pertinent History Cardiac: No Pertinent History Respiratory: No Pertinent History Gastrointestinal: No Pertinent History Genitourinary: No Pertinent History Musculoskeletal: Joint Replacement, Orthopedic Surgery, Other Female Surgical History: No Pertinent History Other Surgical History: thyroidectomy 1994 due to cancer right knee surg, Metal in back from surg L3,4,5, RIGHT HIP REPLACEMENT 2020 - Social History Smoking Status: Never smoker Exposure to second hand smoke: No Drug Use: none - Social Determinants of Health Will the patient participate in the screening: Yes Do you worry about a steady place to live?: No Do you have any problems with any of the following?: No known problems In the past 12 months,have you had to go without utilities?: No Transportation Issues: No Has anyone in your support network made you feel unsafe?: No Have you or anyone in your house had to go w/o enough food: No - Nursing Vital Signs Nursing Vital Signs: Initial Vital Signs Temperature 97.6 F 10/04/25 17:10 Pulse Rate 71 10/04/25 17:10 Respiratory Rate 14 10/04/25 17:10 Blood Pressure 190/84 10/04/25 17:10 O2 Sat by Pulse Oximetry 98 10/04/25 17:10 Pain Scale Pain Intensity 8 - Physical Exam General Appearance: no apparent distress Eye Exam: PERRL/EOMI Ears, Nose, Throat Exam: normal ENT inspection Neck Exam: normal inspection, non-tender Respiratory Exam: normal breath sounds Cardiovascular Exam: regular rate/rhythm Gastrointestinal/Abdomen Exam: soft, No tenderness Back Exam: normal inspection Extremity Exam: other (bruising right buttock, full rom, no shortening,. mild laterla joint tenderness, ambjulatory) SpO2: 96 Ordered Tests: Active Orders 24 hr Category Date Time Status HIP UNI (2V) INCL PEL IF DONE Stat Exams 10/04/25 18:11 Taken Medical Desision Making - Diagnostic Testing Radiological Interpretation: Interpreted by me (xray negative fx) - Departure Departure Disposition: Home Clinical Impression: Contusion of hip Condition: Good Critical Care Time: No Referrals: SAL SAL [Primary Care Provider, [facility]] - Follow up/PCP as directed Instructions: Contusion (DC) Additional Instructions: you have brusing of your hip. no fracture is seen on xray. ice and tyelnol for pain. return for worsening sx or concerns. see your pcp if not better this week
--- NOTE | 2025-10-05 07:35 | XRAY ---
Indication: Fall. Comparison: None 2 view right hip demonstrates osteopenia and intact total knee arthroplasty. No acute bony, articular, or soft tissue abnormalities.
== END 2025-10-04 19:59 | disposition home or self-care (01) ==
LOC: ED 16:57
DX: S70.01XA Contusion of right hip, initial encounter (principal); W10.1XXA Fall (on)(from) sidewalk curb, initial encounter; I10 Essential (primary) hypertension; Z79.899 Other long term (current) drug therapy

== ENCOUNTER 2025-11-06 10:35 | Emergency (ER) | payer MEDICARE ==
--- NOTE | 2025-11-06 10:46 | ERPHSYRPT ---
- History of Present Illness Time Seen by Provider: 11/06/25 10:46 Source: patient, family Exam Limitations: no limitations Physician History: This is an 80-year-old white female patient arrives by private vehicle as a patient Dr. Alba. Patient was taking her trash out this morning when she slipped on mud while taking out the trash falling onto her right side of her face and head. She has above the right eye brow skin laceration and abrasion to her right cheek. Patient states she did not lose consciousness and she is not dizzy. She was evaluated by EMT but arrived by private vehicle. Patient walked on her own from the waiting room to her emergency department room. Patient has a history of hypothyroidism, hyperlipidemia, hypertension, and has arrhythmias. Occurred: just prior to arrival Severity: mild (To moderate) Head Injury Location: temporal (And right side of her face) Method of Injury: other (Patient slipped and fell from a standing position) Loss of Consciousness: no loss of consciousness Associated Symptoms: denies symptoms Allergies/Adverse Reactions: No Known Drug Allergies Allergy (Verified 11/06/25 11:06) Home Medications: Levothyroxine Sodium [Synthroid] 175 mcg PO DAILY 04/25/18 [History] Lovastatin 40 mg PO HS 04/25/18 [History] Potassium Chloride [Klor-Con M20] 20 meq PO DAILY 11/26/24 [History] Aspirin [Kishan Chewable] 81 mg PO DAILY 10/04/25 [History] Cholecalciferol (Vitamin D3) [Vitamin D3] 125 mcg PO DAILY 10/04/25 [History] Losartan Potassium 50 mg PO BID 10/04/25 [History] Meclizine HCl 25 mg PO QID 10/04/25 [History] Nitroglycerin [Nitrostat] 0.4 mg SL Q5MIN PRN MR X 3 PRN 10/04/25 [History] Hx Tetanus, Diphtheria Vaccination/Date Given: Yes Hx Influenza Vaccination/Date Given: Yes Hx Pneumococcal Vaccination/Date Given: No Travel Risk - International Travel Have you traveled outside of the country in past 3 weeks: No - Emerging Infectious Disease Are you exhibiting symptoms associated with any current EIDs: No - Review of Systems Constitutional: No Symptoms Eyes: No Symptoms Ears, Nose, & Throat: No Symptoms Respiratory: No Symptoms Cardiac: No Symptoms Abdominal/Gastrointestinal: No Symptoms Genitourinary Symptoms: No Symptoms Musculoskeletal: No Symptoms Skin: Other (Skin abrasion and swelling right cheek. Skin laceration above the right eyebrow) Neurological: No Symptoms Psychological: No Symptoms Endocrine: No Symptoms Hematologic/Lymphatic: No Symptoms Immunological/Allergic: No Symptoms All Other Systems: Reviewed and Negative - Past Medical History Pertinent Past Medical History: Yes Neurological History: Migraines ENT History: Cataracts Cardiac History: Arrhythmia, High Cholesterol, Hypertension Respiratory History: No Pertinent History Endocrine Medical History: Thyroid Cancer, Other Musculoskeletal History: Osteoarthritis GI Medical History: No Pertinent History History: No Pertinent History Psycho-Social History: No Pertinent History Female Reproductive Disorders: No Pertinent History Other Medical History: THYROID CA IN 1994, WAS REMOVED. R AGUILA 2020. - Past Surgical History Past Surgical History: Yes Neuro Surgical History: No Pertinent History Cardiac: No Pertinent History Respiratory: No Pertinent History Gastrointestinal: No Pertinent History Genitourinary: No Pertinent History Musculoskeletal: Joint Replacement, Orthopedic Surgery, Other Female Surgical History: No Pertinent History Other Surgical History: thyroidectomy 1994 due to cancer right knee surg, Metal in back from surg L3,4,5, RIGHT HIP REPLACEMENT 2020 - Social History Smoking Status: Never smoker Exposure to second hand smoke: No Drug Use: none - Social Determinants of Health Will the patient participate in the screening: Yes Do you worry about a steady place to live?: No In the past 12 months,have you had to go without utilities?: No Transportation Issues: No Has anyone in your support network made you feel unsafe?: No Have you or anyone in your house had to go w/o enough food: No - Nursing Vital Signs Nursing Vital Signs: Initial Vital Signs Temperature 98.3 F 11/06/25 10:59 Pulse Rate 87 11/06/25 10:59 Respiratory Rate 15 11/06/25 10:59 Blood Pressure 211/108 11/06/25 10:59 O2 Sat by Pulse Oximetry 96 11/06/25 10:59 Pain Scale Pain Intensity 10 - [place] Coma Score Best Eye Response (Alejandro): (4) open spontaneously Best Verbal Response (Alejandro): (5) oriented Best Motor Response (Alejandro): (6) obeys commands [place] Total: 15 - Physical Exam General Appearance: no apparent distress, alert, anxiety Head Injury: contusions (With abrasion right cheek), lacerations (3-1/2 cm skin laceration above the right eye) Eye Exam: bilateral eye: normal inspection, PERRL, EOMI ENT Exam: airway nml, nml ext.inspection Neck Exam: supple, trachea midline, full range of motion, normal alignment, normal inspection, No pain on movement of neck, No tenderness, No mid-line tenderness Cardiovascular/Respiratory Exam: chest non-tender, no respiratory distress Gastrointestinal/Abdominal Exam: non tender Pelvic Exam: not done Rectal Exam: not done Back Exam: normal inspection, normal range of motion, No CVA tenderness, No vertebral tenderness Extremity Exam: non-tender, normal range of motion, normal inspection, no calf tenderness, no pedal edema, pelvis stable Mental Status Exam: alert, oriented x 3, 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 No foreign body. No active bleeding) Lymphatic Exam: No adenopathy SpO2 Interpretation: normal O2 Delivery: Room Air Procedures - Laceration/Wound Repair Right Frontal Time of Procedure: 12:25 Wound Location: Right, face (Right eyebrow) Wound Length (cm): 3.5 Wound's Depth, Shape: superficial, linear Wound Explored: clean (Wound explored to the base. Wound explored in a bloodless field and no foreign body noted) Irrigated: Yes Hibiclens Prep: Yes Anesthesia: 1% Lidocaine Volume Anesthetic (ccs): 4 Suture Size/Type: 4-0, nylon Number of Sutures: 4 Layer Closure?: No - Course Nursing assessment & vital signs reviewed: Yes Ordered Tests: Active Orders 24 hr Category Date Time Status FACIAL BONES WO CONTRAST [CT] Stat Exams 11/06/25 11:37 Completed HEAD WITHOUT CONTRAST [CT] Stat Exams 11/06/25 11:09 Completed Medication Summary Discontinued Medications Generic Name Dose Route Start Last Admin Trade Name Freq PRN Reason Stop Dose Admin Bacitracin Zinc 0.9 each 11/06/25 12:46 Bacitracin Packet 1 Each Pckt TP 11/06/25 12:47 STAT ONE Lidocaine HCl 10 ml 11/06/25 11:30 11/06/25 11:36 Lidocaine Hcl 1% 20 Ml Mdv 20 Ml Ml IJ 11/06/25 11:31 10 ml STAT STA Administration Lidocaine HCl Confirm 11/06/25 11:34 Lidocaine Hcl 1% 20 Ml Mdv 20 Ml Ml Administered 11/06/25 11:35 Dose 10 ml .ROUTE .STK-MED ONE Lidocaine/Prilocaine Confirm 11/06/25 11:18 Lidocaine/Prilocaine 5 Gm 5 Gm Tube Administered 11/06/25 11:19 Dose 5 gm TP .STK-MED ONE Lidocaine/Prilocaine 2.5 gm 11/06/25 11:30 11/06/25 11:32 Lidocaine/Prilocaine 5 Gm 5 Gm Tube TP 11/06/25 11:31 2.5 gm STAT STA Administration - Progress Progress: improved, pain not gone completely, re-examined Progress Note: 11/06/25 11:43 My medical decision making and the assignment of moderate complexity of this patient's medical issue today is based on review of the patient's past medical history, review of the patient's medication list, review the patient drug allergy list, history present illness and physical findings on examination. The workup in this patient includes placement of let/Emla cream to the skin laceration site, CT scan of the head and facial bones without contrast. Closure of facial skin laceration. Differential diagnosis includes but is not limited to skin laceration right eyebrow, right cheek facial contusion, right cheek facial abrasion, facial bone fractures/dislocations, acute intracranial abnormality, skull fracture 11/06/25 12:[address] scans were performed without contrast and were interpreted by the radiologist: CT scan of the head shows no definite evidence of acute intracranial insult. There are unchanged involutional brain changes with evidence of chronic ischemic changes. Counseled pt/family regarding: diagnosis, need for follow-up, rad results Medical Desision Making - Diagnostic Testing Diagnostic test were ordered, analyzed, and reviewed by me: Yes Radiological Interpretation: Reviewed by me, Teleradiologist Report - Risk of complications Low Risk: Low risk of morbidity from additional dx testing or treatment - Departure Departure Disposition: Home Clinical Impression: Head injury, Facial contusion, Facial abrasion, Facial laceration Condition: Stable Critical Care Time: No Referrals: SAL ALBA [Primary Care Provider, [facility]] - Follow up/PCP as directed Additional Instructions: Do not get the suture line repair site wet for 24 hours. After 24 hours, you may rinse the site off with soapy water. Do not rub or scrub the site. Blot dry use a chairman & chief executive officer. Apply thin layer of antibiotic ointment to the skin laceration site daily as well as the right cheek abrasion site. Suture removal in 5 to 7 days. Use plain Tylenol for pain control. May apply ice pack to the area 3 times a day for the next 48 hours. Do not apply the ice directly to your skin.
[2025-11-06 11:05] VITALS: TEMP 98.3
[2025-11-06] MEDS ORDERED: EMLA Cream 5 GM TP ONE (11:18)
[2025-11-06] MEDS: EMLA Cream 5 GM TP STA (11:32)
[2025-11-06] MEDS ORDERED: XYLOCAINE 1% HCL 20 ML MDV ONE (11:34)
[2025-11-06] MEDS: XYLOCAINE 1% HCL 20 ML MDV IJ STA (11:36)
--- NOTE | 2025-11-06 12:46 | XRAY ---
CLINICAL HISTORY: Fall injury COMPARISON: Prior study dated 06/14/2025. TECHNIQUE: Non-contrast CT scan of the paranasal sinuses was performed with sagittal and coronal multiplanar reconstruction. One of the following dose reduction techniques was utilized for this exam: automated exposure control, adjustment of the mA and/or kV according to patient size, and iterative reconstruction. FINDINGS: Sinuses: A small retention cyst/polyp is seen within the right maxillary sinus. The remaining paranasal sinuses are clear. No evidence of sinusitis, mucosal thickening, or fluid levels. Osteomeatal complexes are patent. Nasal Cavity: The nasal cavity is unremarkable. No masses, polyps, or deviations. The bony nasal septum is slightly deviated to the left side with a small bony spur. Orbits: The orbits are normal in size and shape. Extraocular muscles and optic nerves are normal. No evidence of orbital masses or proptosis. Maxilla and Mandible: Normal appearance of the maxillary and mandibular bones. No fractures, lytic or sclerotic lesions. Normal dentition without significant periodontal disease. Facial Bones: No fractures or deformities. Zygomatic arches, nasal bones, and other facial structures are intact. Soft Tissues: Resolution of the previously detected right frontal subgaleal and pre-septal hematoma. Foci of calcifications are still noted in the left palatine tonsil. Salivary Glands: Parotid, submandibular, and sublingual glands are normal. No evidence of sialadenitis or masses. Temporomandibular Joints (TMJ): Normal appearance of the TMJ bilaterally. No evidence of joint effusion, degenerative changes, or dislocation. 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 IMPRESSION: No definite CT evidence of acute fracture. Resolution of the previously detected right frontal subgaleal and pre-septal hematoma. A small right maxillary retention cyst/polyp is still noted. The bony nasal septum is slightly deviated to the left side with a small bony spur. Electronically Signed by: Du Hernandez MD. (11/06/2025 12:44:43 EST)
--- NOTE | 2025-11-06 12:48 | XRAY ---
CLINICAL HISTORY: Fall with head injury COMPARISON: Prior study dated 06/14/2025. Prior CTA dated 08/23/2025 was reviewed. TECHNIQUE: Axial non-contrast CT scan of the brain was performed from the skull base to the high parietal region in axial, sagittal, and coronal reconstructions. One of the following dose reduction techniques was utilized for this exam: automated exposure control, adjustment of the mA and/or kV according to patient size, and use of iterative reconstruction. FINDINGS: Brain Parenchyma: Bilateral cerebral deep white matter and subcortical areas of low attenuation are noted, denoting chronic microvascular ischemic changes. Normal attenuation of the cerebellum and brainstem. No evidence of acute infarct, hemorrhage, or mass effect. No abnormal areas of hyperattenuation. Resolution of the previously detected right frontal subgaleal and pre-septal hematoma. Ventricular System and Subarachnoid Spaces: Dilated ventricular system with widened cortical sulci, Sylvian fissures, and extra-axial CSF spaces. No evidence of subarachnoid hemorrhage or extra-axial fluid collections. Cerebellum and Brainstem: No masses, lesions, or areas of abnormal density. Orbits: Normal appearance of the globes, optic nerves, and extraocular muscles. No evidence of orbital masses or abnormal density. Sinuses: Clear paranasal sinuses. No evidence of sinusitis or mucosal thickening. Mastoid Air Cells: Clear mastoid air cells. No evidence of mastoiditis. Skull: Normal. IMPRESSION: 1. No definite CT evidence of an acute intracranial insult. 2. Resolution of the previously detected right frontal subgaleal and pre-septal hematoma. 3. Involutional brain changes with evidence of chronic microvascular ischemic changes (unchanged). Electronically Signed by: Du Hernandez MD. (11/06/2025 12:46:55 EST)
[2025-11-06] MEDS ORDERED: BACIGUENT PACKET ONE (13:00)
[2025-11-06 13:01] VITALS: O2SAT 93
[2025-11-06] MEDS: BACIGUENT PACKET TP ONE (13:02)
[2025-11-06 13:04] VITALS: BP 162/83; PULSE 80; RESP 15
== END 2025-11-06 13:15 | disposition home or self-care (01) ==
LOC: ED 10:35
DX: S01.111A Laceration without foreign body of right eyelid and periocular area, initial encounter (principal); S00.83XA Contusion of other part of head, initial encounter; S00.81XA Abrasion of other part of head, initial encounter; S09.90XA Unspecified injury of head, initial encounter; W01.0XXA Fall on same level from slipping, tripping and stumbling without subsequent striking against object, initial encounter; Y92.007 Garden or yard of unspecified non-institutional (private) residence as the place of occurrence of the external cause; I10 Essential (primary) hypertension; Z79.899 Other long term (current) drug therapy